=== PATIENT | female | born 1955 | race Two or more races ===

== ENCOUNTER 2024-09-15 16:17 | Inpatient (IN) | payer OTHER ==
[~2024-09-15] VITALS: Ht 152.4 cm; Wt 132.9 kg
[2024-09-15 16:58] LABS: BASOPHILS % (AUTO) 0.2 % (0.0-2.0); EOSINOPHILS # (AUTO) 0.2 K/uL (0.0-0.7); EOSINOPHILS % (AUTO) 1.8 % (0.0-6.0); HEMATOCRIT 37 % (33-45); HEMOGLOBIN 12.2 g/dL (11.5-14.8); LYMPHOCYTES # (AUTO) 2.2 K/uL (0.8-4.8); LYMPHOCYTES % (AUTO) 23.6 % (20.0-44.0); MEAN CORPUSCULAR HEMOGLOBIN 28 PG (26.0-33.0); MEAN CORPUSCULAR HGB CONC 33 g/dl (31.0-36.0); MEAN CORPUSCULAR VOLUME 84 fL (82-100); MONOCYTES # (AUTO) 0.5 K/uL (0.1-1.30); MONOCYTES % (AUTO) 5.9 % (2.0-12.0); NEUTROPHILS # (AUTO) 6.4 K/uL (1.8-8.9); NEUTROPHILS % (AUTO) 68.5 % (43.0-81.0); PLATELET COUNT (AUTO) 431 K/uL (150-450); RED BLOOD CELL COUNT(AUTO) 4.39 MIL/uL (4.0-5.2); RED CELL DISTRIBUTION WIDTH 14.9 % (11.5-15.0); WHITE BLOOD COUNT (AUTO) 9.3 K/uL (4.3-11.0)
[2024-09-15] MEDS: IV NS 0.9% 1,000 ML BAG IV ONE ×2 (17:03→18:23)
[2024-09-15 17:08] LABS: CALCIUM, SERUM 9.1 mg/dL (8.5-10.1); CREATININE 1.5 mg/dL (0.6-1.3); POTASSIUM 5.2 mmol/L (3.5-5.1)
[2024-09-15 17:13] LABS: ALBUMIN 1.7 g/dL (3.4-5.0); BILIRUBIN,TOTAL 0.3 mg/dL (0.2-1.0); MAGNESIUM 2.4 mg/dL (1.8-2.4); TOTAL PROTEIN, SERUM 6.5 g/dL (6.4-8.2)
[2024-09-15] MEDS: SODIUM ZIRCONIUM CYCLOSILICATE 10 GM POWD.PACK PO ONE ×2 (17:30→17:35)
[2024-09-15] MEDS ORDERED: SODIUM ZIRCONIUM CYCLOSILICATE 10 GM POWD.PACK ONE (17:34)
[2024-09-15 18:34] LABS: PLATELET ESTIMATE ADEQUATE
[2024-09-15 18:44] LABS: EOSINOPHILS % (MANUAL) 3 % (0-4); LYMPHOCYTES % (MANUAL) 24 % (16-48); MONOCYTES % (MANUAL) 10 % (0-11.0); NEUTROPHILS % (MANUAL) 63 (42-76)
[2024-09-15 18:46] LABS: ANISOCYTOSIS 1+
[2024-09-15 18:53] LABS: APPEARANCE,URINE CLEAR (CLEAR); BILIRUBIN,URINE NEGATIVE (NEGATIVE); BLOOD, URINE NEGATIVE Ery/uL (NEGATIVE); COLOR,URINE YELLOW (YELLOW); KETONES,URINE NEGATIVE (NEGATIVE); LEUKOCYTE ESTERASE ,URINE NEGATIVE (NEGATIVE); NITRITE, URINE NEGATIVE (NEGATIVE); PH,URINE 5.5 (5.0-8.0); PROTEIN,URINE NEGATIVE (NEGATIVE); UGLUCOSE NEGATIVE (NEGATIVE); UROBILINOGEN,URINE 0.2 EU/dL (0.2)
[2024-09-15] MEDS ORDERED: MULT-594 PO (19:14)
[2024-09-15] MEDS ORDERED: SENN-261 PO (19:14)
[2024-09-15] MEDS ORDERED: ACET325T53 PO (19:14)
[2024-09-15] MEDS ORDERED: COLL30OI TP (19:14)
[2024-09-15] MEDS ORDERED: DICL75TA5 PO (19:14)
[2024-09-15] MEDS ORDERED: MAGN400O6 PO (19:14)
[2024-09-15] MEDS ORDERED: NA P133E RC (19:14)
[2024-09-15] MEDS ORDERED: HYDR-4303 PO (19:14)
[2024-09-15] MEDS ORDERED: ACID1TAB12 PO (19:14)
[2024-09-15] MEDS ORDERED: BISA10SU11 RC (19:14)
[2024-09-15] MEDS ORDERED: AMLO-62 PO (19:14)
[2024-09-15] MEDS ORDERED: POLY17PO4 PO (19:14)
[2024-09-15] MEDS ORDERED: CALC500T53 PO (19:14)
[2024-09-15] MEDS ORDERED: ASCORBIC ACID PO (19:14)
[2024-09-15] MEDS ORDERED: ACETAMINOPHEN 325 MG TABLET PO PRN (20:30)
[2024-09-15] MEDS ORDERED: ONDANSETRON HCL/PF 4 MG/2 ML VIAL IVP PRN (20:30)
[2024-09-15] MEDS ORDERED: MAG HYDROX/AL HYDROX/SIMETH 30 ML UDC PO PRN (20:30)
[2024-09-15] MEDS ORDERED: MAGNESIUM HYDROXIDE 30 ML UDC PO PRN (20:30)
[2024-09-15 20:50] VITALS: BP 105/52; TEMP 98.2; O2SAT 99
[2024-09-15] MEDS: IV NS 0.9% 1,000 ML IV PRN (21:02)
[2024-09-15] MEDS: HYDROCODONE/APAP 5/325MG TABLET PO PRN (22:51)
[2024-09-16] VITALS (8 sets, daily range): BP systolic 91–120; BP diastolic 42–81; TEMP 97.5–98.4; O2SAT 94–99
[2024-09-16 06:52] LABS: BASOPHILS % (AUTO) 0.6 % (0.0-2.0); EOSINOPHILS # (AUTO) 0.3 K/uL (0.0-0.7); EOSINOPHILS % (AUTO) 3.4 % (0.0-6.0); HEMATOCRIT 36 % (33-45); HEMOGLOBIN 11.5 g/dL (11.5-14.8); LYMPHOCYTES # (AUTO) 1.6 K/uL (0.8-4.8); MEAN CORPUSCULAR HEMOGLOBIN 28 PG (26.0-33.0); MEAN CORPUSCULAR HGB CONC 32 g/dl (31.0-36.0); MEAN CORPUSCULAR VOLUME 86 fL (82-100); MONOCYTES # (AUTO) 0.8 K/uL (0.1-1.30); MONOCYTES % (AUTO) 10.6 % (2.0-12.0); NEUTROPHILS # (AUTO) 4.9 K/uL (1.8-8.9); NEUTROPHILS % (AUTO) 64.4 % (43.0-81.0); PLATELET COUNT (AUTO) 331 K/uL (150-450); RED BLOOD CELL COUNT(AUTO) 4.15 MIL/uL (4.0-5.2); RED CELL DISTRIBUTION WIDTH 14.9 % (11.5-15.0); WHITE BLOOD COUNT (AUTO) 7.6 K/uL (4.3-11.0)
[2024-09-16 06:55] LABS: CALCIUM, SERUM 8.3 mg/dL (8.5-10.1); CREATININE 0.8 mg/dL (0.6-1.3); MAGNESIUM 2.2 mg/dL (1.8-2.4); PHOSPHORUS 3.8 mg/dL (2.5-4.9); POTASSIUM 4.7 mmol/L (3.5-5.1)
[2024-09-16] MEDS: PANTOPRAZOLE 40 MG VIAL IV SCH (08:36)
[2024-09-16] MEDS: CALCIUM CARBONATE (1250) 500 MG TABLET PO SCH (08:37)
[2024-09-16] MEDS: MULTIVITAMINS,THERAGRAN 1 UDTAB TABLET PO SCH (08:37)
[2024-09-16] MEDS: ACIDOPHILUS/BULGARICUS 1 EACH TAB.CHEW PO SCH (08:37)
[2024-09-16] MEDS: LISINOPRIL (20MG) 20 MG TABLET PO SCH (08:38)
[2024-09-16] MEDS: AMLODIPINE BESYLATE 10 MG TABLET PO SCH (08:38)
[2024-09-16] MEDS ORDERED: Z GUARD REMEDY 4 OZ OINT TP PRN (09:30)
[2024-09-16] MEDS: Z GUARD REMEDY 4 OZ OINT TP SCH (10:50)
[2024-09-16] MEDS: DAKINS QUARTER STRENGTH (0.125%) 480 ML BOTTLE TOP SCH ×2 (10:51→20:50)
[2024-09-16] MEDS: THERAHONEY GEL 1.5 OZ TUBE TP SCH (10:51)
[2024-09-16] MEDS: CLOTRIMAZOLE 1% 15 GM TUBE TP SCH (10:51)
[2024-09-16] MEDS: DICLOFENAC SODIUM 25 MG TABLET.DR PO SCH (10:54)
[2024-09-17 07:01] LABS: BASOPHILS % (AUTO) 0.3 % (0.0-2.0); EOSINOPHILS # (AUTO) 0.2 K/uL (0.0-0.7); HEMATOCRIT 33 % (33-45); HEMOGLOBIN 10.7 g/dL (11.5-14.8); LYMPHOCYTES # (AUTO) 1.5 K/uL (0.8-4.8); MEAN CORPUSCULAR HEMOGLOBIN 28 PG (26.0-33.0); MEAN CORPUSCULAR HGB CONC 33 g/dl (31.0-36.0); MEAN CORPUSCULAR VOLUME 85 fL (82-100); MONOCYTES # (AUTO) 0.8 K/uL (0.1-1.30); MONOCYTES % (AUTO) 6.7 % (2.0-12.0); NEUTROPHILS # (AUTO) 8.9 K/uL (1.8-8.9); PLATELET COUNT (AUTO) 369 K/uL (150-450); WHITE BLOOD COUNT (AUTO) 11.4 K/uL (4.3-11.0)
[2024-09-17 07:30] LABS: BILIRUBIN,TOTAL 0.3 mg/dL (0.2-1.0); CALCIUM, SERUM 8.4 mg/dL (8.5-10.1); CREATININE 0.8 mg/dL (0.6-1.3); PHOSPHORUS 2.8 mg/dL (2.5-4.9); POTASSIUM 4.7 mmol/L (3.5-5.1); TOTAL PROTEIN, SERUM 5.3 g/dL (6.4-8.2)
[2024-09-17 08:00] VITALS: BP 89/41; TEMP 97.9; O2SAT 94
[2024-09-17 08:13] LABS: ALBUMIN 1.3 g/dL (3.4-5.0)
[2024-09-17] MEDS: PANTOPRAZOLE 40 MG TABLET.DR PO SCH (09:19)
[2024-09-17 16:00] VITALS: BP 109/49; TEMP 98.2; O2SAT 96
[2024-09-17 20:00] VITALS: BP 113/51; TEMP 98.2; O2SAT 97
[2024-09-18 02:19] VITALS: BP 113/51; TEMP 98.2; O2SAT 97
[2024-09-18 05:10] LABS: PTH, INTACT 16 pg/mL (15-65)
[2024-09-18 08:00] VITALS: BP 102/57; TEMP 98.4; O2SAT 100; O2SAT 97
[2024-09-18 16:00] VITALS: BP 100/57; TEMP 97.9; O2SAT 97
== END 2024-09-18 19:00 | DRG 682 ==
LOC: ER 16:17 → TELE 20:07 → MED 09-16 12:57
DX: N17.0 Acute kidney failure with tubular necrosis (principal); E43 Unspecified severe protein-calorie malnutrition; L89.154 Pressure ulcer of sacral region, stage 4; L89.324 Pressure ulcer of left buttock, stage 4; Z68.43 Body mass index [BMI] 50.0-59.9, adult; E87.1 Hypo-osmolality and hyponatremia; D68.59 Other primary thrombophilia; A04.72 Enterocolitis due to Clostridium difficile, not specified as recurrent; E87.5 Hyperkalemia; E66.01 Morbid (severe) obesity due to excess calories; L30.4 Erythema intertrigo; L89.312 Pressure ulcer of right buttock, stage 2; R15.9 Full incontinence of feces; M89.8X9 Other specified disorders of bone, unspecified site; N13.2 Hydronephrosis with renal and ureteral calculous obstruction; E88.09 Other disorders of plasma-protein metabolism, not elsewhere classified; Z91.81 History of falling; Z74.09 Other reduced mobility; I13.10 Hypertensive heart and chronic kidney disease without heart failure, with stage 1 through stage 4 chronic kidney disease, or unspecified chronic kidney disease; N18.9 Chronic kidney disease, unspecified; M15.9 Polyosteoarthritis, unspecified
CPT/HCPCS: 36415; 71045-TC; 76770-TC; 80048-TC; 80053-TC; 82550-TC; 83735-TC; 83970; 84100-TC; 84155; 84165; 85025-TC; 87081-TC; 97110-TC; 97112-TC; 97530-TC; A4223; A6253; A6403; G0378; J2470; J7030

== ENCOUNTER 2024-11-24 12:44 | Emergency (ER) | payer MEDICARE, OTHER ==
[~2024-11-24] VITALS: Ht 154.9 cm; Wt 137.4 kg
[~2024-11-24 12:44] MED LIST: ACET325T53 PO; ACID1TAB12 PO; AMLO-62 PO; ASCORBIC ACID PO; BISA10SU11 RC; CALC500T53 PO; COLL30OI TP; DICL75TA5 PO; HYDR-4303 PO; MAGN400O6 PO; MULT-594 PO; NA P133E RC; POLY17PO4 PO; SENN-261 PO
[2024-11-24 13:30] LABS: BASOPHILS # (AUTO) 0.1 K/uL (0.0-0.2); BASOPHILS % (AUTO) 0.8 % (0.0-2.0); EOSINOPHILS # (AUTO) 0.3 K/uL (0.0-0.7); EOSINOPHILS % (AUTO) 4.5 % (0.0-6.0); HEMATOCRIT 37 % (33-45); HEMOGLOBIN 11.9 g/dL (11.5-14.8); LYMPHOCYTES # (AUTO) 1.6 K/uL (0.8-4.8); MEAN CORPUSCULAR HEMOGLOBIN 27 PG (26.0-33.0); MEAN CORPUSCULAR HGB CONC 32 g/dl (31.0-36.0); MEAN CORPUSCULAR VOLUME 83 fL (82-100); MONOCYTES # (AUTO) 0.4 K/uL (0.1-1.30); MONOCYTES % (AUTO) 5.5 % (2.0-12.0); NEUTROPHILS # (AUTO) 4.3 K/uL (1.8-8.9); NEUTROPHILS % (AUTO) 65.2 % (43.0-81.0); PLATELET COUNT (AUTO) 306 K/uL (150-450); RED BLOOD CELL COUNT(AUTO) 4.46 MIL/uL (4.0-5.2); RED CELL DISTRIBUTION WIDTH 16.2 % (11.5-15.0); WHITE BLOOD COUNT (AUTO) 6.6 K/uL (4.3-11.0)
[2024-11-24 13:38] LABS: CALCIUM, SERUM 9.2 mg/dL (8.5-10.1); CREATININE 0.6 mg/dL (0.6-1.3)
[2024-11-24] MEDS ORDERED: PANT40TA49 PO (14:44)
[2024-11-24] MEDS ORDERED: MAG30ORA PO (14:44)
[2024-11-24] MEDS ORDERED: AMLO-213 PO (14:44)
[2024-11-24] MEDS ORDERED: ACET-73 PO (14:44)
[2024-11-24] MEDS ORDERED: ZINC OXIDE TP (14:44)
[2024-11-24] MEDS ORDERED: ASCO500T10 PO (14:44)
[2024-11-24] MEDS ORDERED: MULT-213 PO (14:44)
[2024-11-24] MEDS ORDERED: LACT1TAB25 PO (14:44)
[2024-11-24] MEDS ORDERED: AMIN30LI25 PO (14:44)
[2024-11-25] MEDS ORDERED: ACETAMINOPHEN ES 500 MG TABLET ONE (00:05)
[2024-11-25] MEDS: ACETAMINOPHEN ES 500 MG TABLET PO ONE (00:10)
[2024-11-25 08:10] VITALS: TEMP 98.1
[2024-11-25 14:00] VITALS: BP 132/80; O2SAT 96
== END 2024-11-25 15:22 | disposition short-term general hospital (02) ==
LOC: ER 12:46
DX: T84.69XA Infection and inflammatory reaction due to internal fixation device of other site, initial encounter (principal); I10 Essential (primary) hypertension; Z79.899 Other long term (current) drug therapy; Y92.89 Other specified places as the place of occurrence of the external cause
CPT/HCPCS: 36415; 80048-TC; 85025-TC